=== PATIENT | male | born 1940 | race Caucasian/White ===

== ENCOUNTER → 2017-08-12 | Outpatient (CLI) | payer BC | LOC: PLD 11:25 → LAB SHORT 11:25 | DX: L30.8 Other specified dermatitis (principal) | CPT/HCPCS: 88305; 88312 ==

== ENCOUNTER 2018-11-08 07:18 | Day surgery (SDC) | payer BC ==
[~2018-11-08] VITALS: Ht 170.2 cm; Wt 75.5 kg
[~2018-11-08 07:18] MED LIST: FAMO20; LEVSOD75; LIVALO2 MG; PROAIR RESPICL90 MCG; Quinapril HCl20 MG; TAMS.4ER
[2018-11-08] MEDS ORDERED: OMEPRAZOLE20 MG (07:54)
[2018-11-08] MEDS ORDERED: Vitamin D2000 UNIT (07:55)
--- NOTE | 2018-11-08 09:14 | NUR ---
11/08/[address] NEEDED TO GO BACK FOR EGD, PATIENT DILATED WITH SAVORY 18,20. IN TIME FOR 2ND EGD 905 END TIME 907
== END 2018-11-08 09:45 | disposition home or self-care (01) ==
LOC: ORSCSDS 07:18
PROVIDERS: Internal Medicine Gastroenterology
PROC: 0DBN8ZX Excision of Sigmoid Colon, Via Natural or Artificial Opening Endoscopic, Diagnostic (ICD-10-PCS; principal; 2018-11-08 08:30)
PROC: 0DB68ZX Excision of Stomach, Via Natural or Artificial Opening Endoscopic, Diagnostic (ICD-10-PCS; principal; 2018-11-08 08:30)
PROC: 0D758ZZ Dilation of Esophagus, Via Natural or Artificial Opening Endoscopic (ICD-10-PCS; principal; 2018-11-08 08:30)
DX: K21.9 Gastro-esophageal reflux disease without esophagitis (principal); R13.10 Dysphagia, unspecified; K22.2 Esophageal obstruction; D12.5 Benign neoplasm of sigmoid colon; K57.30 Diverticulosis of large intestine without perforation or abscess without bleeding; K64.8 Other hemorrhoids; Z12.11 Encounter for screening for malignant neoplasm of colon; Z86.010 Personal history of colon polyps; I10 Essential (primary) hypertension; E78.5 Hyperlipidemia, unspecified; E03.9 Hypothyroidism, unspecified; Z79.899 Other long term (current) drug therapy
CPT/HCPCS: 88305; 88342; J0461; J2405; J2704; J7120

== ENCOUNTER → 2018-11-24 | Outpatient (CLI) | payer BC ==
[~2018-11-24] MED LIST changes: +OMEPRAZOLE20 MG; +Vitamin D2000 UNIT
== END | disposition home or self-care (01) ==
LOC: LAB SHORT 10:54 → PLD 10:54
DX: D48.5 Neoplasm of uncertain behavior of skin (principal)
CPT/HCPCS: 88305

== ENCOUNTER → 2019-03-15 | Outpatient (CLI) | payer BC ==
[2019-03-15 16:42] LABS: Free Thyroxine 0.99 ng/dL (0.70-1.60)
[2019-03-15 16:45] LABS: Thyroid Stimulating Hormone 2.02 uIU/mL (0.360-4.800); Triiodothyronine, Free 2.76 pg/mL (2.18-3.98)
== END | disposition home or self-care (01) ==
LOC: LAB SHORT 14:40 → LAB 14:40
PROVIDERS: Internal Medicine
DX: E03.9 Hypothyroidism, unspecified (principal)
CPT/HCPCS: 36415; 84439; 84443; 84481

== ENCOUNTER → 2020-03-07 | Outpatient (CLI) | payer MEDICARE ==
[2020-03-07 15:17] LABS: BASOPHILS ABSOLUTE AUTO 0.05 K/mm3 (0.00-0.23); BASOPHILS PERCENT AUTO 1 % (0-2); EOSINOPHILS ABSOLUTE AUTO 0.13 K/mm3 (0.00-0.68); EOSINOPHILS PERCENT AUTO 2 % (0-6); Hematocrit 50.2 % (37.0-53.0); Hemoglobin 15.4 g/dL (13.5-17.5); IMMATURE GRAN ABSOLUTE AUTO 0.01 K/mm3 (0.00-0.10); IMMATURE GRAN PERCENT AUTO 0 % (0-1); LYMPHOCYTES ABSOLUTE AUTO 2.58 K/mm3 (0.84-5.20); LYMPHOCYTES PERCENT AUTO 40 % (21-46); MONOCYTES ABSOLUTE AUTO 0.58 K/mm3 (0.16-1.47); MONOCYTES PERCENT AUTO 9 % (4-13); Mean Corpuscular HGB 27.3 pg (26.0-34.0); Mean Corpuscular HGB Conc 30.7 g/dL (31.5-36.5); Mean Corpuscular Volume 89 fL (80-100); Mean Platelet Volume 11.3 fL (9.1-12.4); NEUTROPHILS ABSOLUTE AUTO 3.04 K/mm3 (1.96-9.15); NEUTROPHILS PERCENT AUTO 48 % (41-73); Platelet Count 177 K/mm3 (150-400); RDW Coefficient Variation 13.7 % (11.7-14.2); RDW Standard Deviation 44.9 fL (35.1-46.3); Red Blood Cell Count 5.64 M/mm3 (4.30-5.90); White Blood Cell Count 6.39 K/mm3 (4.00-11.30)
[2020-03-07 15:51] LABS: Alanine Aminotransfer (ALT/SGP 24 U/L (12-78); Albumin, Blood 4.1 g/dL (3.4-5.0); Albumin/Globulin Ratio 1.2 (0.8-1.8); Alk Phos 69 U/L (50-136); Anion Gap 8 mmol/L (6-16); Aspartate Aminotrans (AST/SGOT 25 U/L (12-37); Bilirubin, Total 0.5 mg/dL (0.1-1.0); Blood Urea Nitrogen 15 mg/dL (8-24); Bun/Creatinine Ratio 14.6 (12.0-20.0); CHOL/HDL RATIO 2.4; CO2, Blood 24 mmol/L (21-32); Calcium, Blood 9.7 mg/dL (8.5-10.1); Chloride, Blood 110 mmol/L (98-108); Cholesterol 149 mg/dL (50-200); Creatinine, Blood 1.03 mg/dL (0.60-1.20); Globulin, Blood 3.3 g/dL (2.2-4.0); Glomerular Filtration Rate >60 (60-); Glucose, Blood 107 mg/dL (70-99); HDL Cholesterol 62 mg/dL (>39); LDL/HDL RATIO 1.2; Low Density Lipoprotein Chol 72 mg/dL (0-110); Potassium, Blood 4.9 mmol/L (3.5-5.5); Sodium, Blood 142 mmol/L (136-145); Total Protein, Blood 7.4 g/dL (6.4-8.2); Triglycerides 77 mg/dL (30-160); Very Low Density Lipoprot Chol 15 mg/dL (6-32)
== END | disposition home or self-care (01) ==
LOC: LAB SHORT 12:42
PROVIDERS: Internal Medicine
DX: I10 Essential (primary) hypertension (principal); E78.5 Hyperlipidemia, unspecified; E03.9 Hypothyroidism, unspecified; R73.9 Hyperglycemia, unspecified
CPT/HCPCS: 80053; 80061; 83036; 84443; 85025

== ENCOUNTER 2022-02-20 10:03 | Day surgery (SDC) | payer MEDICARE ==
[~2022-02-20] VITALS: Ht 170.2 cm; Wt 64.8 kg
[2022-02-20] MEDS ORDERED: Flonase 0.05% N16 GM (10:20)
== END 2022-02-20 11:41 | disposition home or self-care (01) ==
LOC: ORSCSDS 10:03
PROVIDERS: Internal Medicine Gastroenterology
PROC: 0DBL8ZX Excision of Transverse Colon, Via Natural or Artificial Opening Endoscopic, Diagnostic (ICD-10-PCS; principal; 2022-02-20 11:15)
DX: K57.30 Diverticulosis of large intestine without perforation or abscess without bleeding (principal); D12.3 Benign neoplasm of transverse colon; K64.8 Other hemorrhoids; Z86.010 Personal history of colon polyps; Z79.899 Other long term (current) drug therapy
CPT/HCPCS: 88305; J2704; J7120

== ENCOUNTER → 2022-07-23 | Outpatient (CLI) | payer MEDICARE ==
[~2022-07-23] MED LIST changes: +Flonase 0.05% N16 GM
[2022-07-23 19:46] LABS: Calcium, Blood 9.6 mg/dL (8.5-10.1); Creatinine, Blood 1.39 mg/dL (0.60-1.20); Potassium, Blood 4.2 mmol/L (3.5-5.5)
== END | disposition home or self-care (01) ==
LOC: LAB SHORT 14:35 → LAB 14:35
PROVIDERS: Internal Medicine
DX: I10 Essential (primary) hypertension (principal)
CPT/HCPCS: 80048

== ENCOUNTER → 2022-08-01 | Outpatient (CLI) | payer MEDICARE ==
[2022-08-01 18:33] LABS: Bun/Creatinine Ratio 18.3 (12.0-20.0); Calcium, Blood 8.9 mg/dL (8.5-10.1); Creatinine, Blood 1.04 mg/dL (0.60-1.20); Potassium, Blood 4.2 mmol/L (3.5-5.5)
== END | disposition home or self-care (01) ==
LOC: LAB 15:58 → LAB SHORT 15:58
PROVIDERS: Internal Medicine
DX: I10 Essential (primary) hypertension (principal)
CPT/HCPCS: 80048

== ENCOUNTER → 2023-04-28 | Outpatient (CLI) | payer MEDICARE | LOC: LAB 10:37 → LAB SHORT 10:37 | DX: D48.5 Neoplasm of uncertain behavior of skin (principal) | CPT/HCPCS: 88305 ==

== ENCOUNTER → 2024-02-04 | Outpatient (CLI) | payer MEDICARE | LOC: LAB SHORT 11:42 → LAB 11:42 | DX: L08.9 Local infection of the skin and subcutaneous tissue, unspecified (principal) | CPT/HCPCS: 87070; 87077; 87186; 87205 ==